=== PATIENT | male | born 1970 | race Caucasian/White ===

== ENCOUNTER → 2020-05-01 08:20 | Outpatient (BNVA) | payer MEDICAID, SELFPAY | PROVIDERS: Family Provider Family Medicine; PCP Family Medicine; Referring Provider Registered Nurse; Visit Provider Registered Nurse | DX: Z79.899 Other long term (current) drug therapy (principal) | CPT/HCPCS: 80053; 80061; 83036; 85025 ==

== ENCOUNTER → 2021-04-17 10:02 | Outpatient (BNVA) | payer MEDICAID, SELFPAY | PROVIDERS: Family Provider Family Medicine; PCP Family Medicine; Visit Provider Registered Nurse | DX: Z79.899 Other long term (current) drug therapy (principal) | CPT/HCPCS: 80053; 80061; 83036 ==

== ENCOUNTER → 2022-07-17 11:17 | Outpatient (BNVA) | payer MEDICAID, SELFPAY | PROVIDERS: Family Provider Family Medicine; PCP Family Medicine; Visit Provider Registered Nurse | DX: Z79.899 Other long term (current) drug therapy (principal) | CPT/HCPCS: 80053; 80061; 83036; 85025 ==

== ENCOUNTER → 2023-06-30 09:14 | Outpatient (BNVA) | payer MEDICAID, SELFPAY | PROVIDERS: Family Provider Family Medicine; Visit Provider Psychiatry & Neurology Psychiatry | DX: Z79.899 Other long term (current) drug therapy (principal); F41.1 Generalized anxiety disorder; F43.12 Post-traumatic stress disorder, chronic; F20.9 Schizophrenia, unspecified | CPT/HCPCS: 80053; 80061; 83036; 84443; 85025 ==

== ENCOUNTER → 2024-06-28 09:08 | Outpatient (BNVA) | payer OTHER, SELFPAY | PROVIDERS: Family Provider Family Medicine | DX: F20.9 Schizophrenia, unspecified (principal) | CPT/HCPCS: 80053; 80061; 83036; 84443; 85025 ==